=== PATIENT | female | born 1990 | race Caucasian/White ===

== ENCOUNTER 2021-06-02 23:57 | Emergency (ER) | payer MEDICAID ==
[2021-06-03 00:15] VITALS: BP 118/76
== END 2021-06-03 00:57 | disposition left against medical advice (07) ==
LOC: ED 23:57
DX: Z53.21 Procedure and treatment not carried out due to patient leaving prior to being seen by health care provider (principal)

== ENCOUNTER 2024-03-20 18:02 | Outpatient (CLI) | payer MEDICAID | END 2024-03-20 23:59 | disposition critical access hospital (66) | LOC: EMS 18:02 | DX: K59.00 Constipation, unspecified (principal); R14.0 Abdominal distension (gaseous); R10.31 Right lower quadrant pain; R10.32 Left lower quadrant pain; R10.813 Right lower quadrant abdominal tenderness; R10.814 Left lower quadrant abdominal tenderness; R19.34 Left lower quadrant abdominal rigidity | CPT/HCPCS: A0425; A0429; A0999 ==

== ENCOUNTER 2024-03-20 18:23 | Emergency (ER) | payer MEDICAID ==
--- NOTE | 2024-03-20 18:46 | ED Physician Documentation ---
PD HPI ABD PAIN - Stated complaint Stated Complaint: ABD PX - Chief complaint Chief Complaint: Abd Pain - History obtained from History obtained from: Patient - Additional information Additional information: 33-year-old female with a past medical history of polysubstance abuse currently staying [facility] presents with abdominal pain. She reportedly has not had a bowel movement in 16 days and has had increasing abdominal pain more so in the left upper quadrant for last several days. She last ate around 4 AM but states she did vomit. She has not taken any p.o. since then. She feels a bloated and d istended. She has not had a fever, no diarrhea, Denies any urinary symptoms. She denies any chance of . She has a history of constipation requiring multiple disimpactions under sedation at [facility] in the past. She states she has tried multiple different medications recently including 4 tablets of bisacodyl today, MiraLAX, several enemas and has been on Linzess in the past without relief.No history of bowel obstruction or bowel surgeries. Review of Systems Constitutional: reports: Reviewed and negative Eyes: reports: Reviewed and negative Ears: reports: Reviewed and negative Nose: reports: Reviewed and negative Throat: reports: Reviewed and negative Cardiac: reports: Reviewed and negative Respiratory: reports: Reviewed and negative GI: reports: Abdominal Pain, Abdominal Swelling, Nausea, Vomiting, Constipation : reports: Reviewed and negative Skin: reports: Reviewed and negative Musculoskeletal: reports: Reviewed and negative Neurologic: reports: Reviewed and negative Psychiatric: reports: Reviewed and negative PD PAST MEDICAL HISTORY - Past Medical History Past Medical History: Yes GI: Chronic constipation (IBS-C, opioid induced constipation), Other Psych: Depression, Anxiety, Other (Polysubstance abuse) - Past Surgical History Past Surgical History: Yes General: Other - Present Medications Home Medications: Ambulatory Orders Medication Instructions Recorded Confirmed Buspirone HCl 40 mg PO DAILY 06/03/21 06/03/21 Citalopram [CeleXA] 40 mg PO DAILY 06/03/21 06/03/21 Bisacodyl Supp [Dulcolax Supp] 10 mg IA DAILY #30 supp 03/20/24 Lactulose 20 gm PO BID #473 ml 03/20/24 - Allergies Allergies/Adverse Reactions: Allergies Allergy/AdvReac Type Severity Reaction Status Date / Time codeine Allergy Anaphylaxis Verified 03/20/24 18:30 doxycycline Allergy Hives Verified 03/20/24 18:30 - Social History Does the pt smoke?: Yes Smoking Status: Current every day smoker Does the pt drink ETOH?: No Does the pt have substance abuse?: Yes Substance Use and Type: Meth, Heroin, Other - Immunizations Immunizations are current?: Yes - POLST Patient has POLST: No PD ED PE NORMAL - Vitals Vital signs reviewed: Yes - General General: Alert and oriented X 3, Other (Patient appears chronically ill, nonto xic.) - HEENT HEENT: Atraumatic, Moist mucous membranes - Neck Neck: Supple, no meningeal sign, No adenopathy - Cardiac Cardiac: RRR, No murmur - Respiratory Respiratory: No respiratory distress, Clear bilaterally - Abdomen Abdomen: Normal bowel sounds, Soft, Other (Generalized tenderness to light touch, focal tenderness in the left upper quadrant. No rigidity abdomen does not appear distended to me, bowel tones are active.) - Derm Derm: Normal color, Warm and dry - Extremities Extremities: No deformity, No tenderness to palpate, Normal ROM s pain, No edema, No calf tenderness / cord Results - Vitals Vitals: Vital Signs - 24 hr 03/20/24 03/20/24 03/20/24 18:30 19:05 19:30 Temperature 37.0 C Heart Rate 70 68 76 Respiratory 15 18 18 Rate Blood Pressure 107/66 107/66 105/65 O2 Saturation 98 96 95 If not protocol : Oxygen Flow, liters/minute 03/20/24 03/20/24 03/20/24 20:00 20:30 20:53 Temperature Heart Rate 85 83 90 Respiratory 18 18 18 Rate Blood Pressure 113/69 101/65 101/65 O2 Saturation 97 97 100 If not protocol 2 : Oxygen Flow, liters/minute 03/20/24 03/20/24 03/20/24 20:55 20:59 21:00 Temperature Heart Rate 78 97 101 H Respiratory 18 14 22 Rate Blood Pressure 103/63 133/86 H 133/96 H O2 Saturation 98 98 98 If not protocol 2 2 2 : Oxygen Flow, liters/minute 03/20/24 03/20/24 03/20/24 21:04 21:09 21:14 Temperature Heart Rate 102 H 88 107 H Respiratory 20 14 20 Rate Blood Pressure 130/80 121/74 133/80 H O2 Saturation 98 99 98 If not protocol 2 2 2 : Oxygen Flow, liters/minute 03/20/24 03/20/24 03/20/24 21:19 21:24 21:30 Temperature Heart Rate 99 83 79 Respiratory 14 20 22 Rate Blood Pressure 129/82 H 121/78 121/78 O2 Saturation 98 99 97 If not protocol 2 2 : Oxygen Flow, liters/minute 03/20/24 03/20/24 03/20/24 21:31 21:39 21:52 Temperature Heart Rate 81 78 77 Respiratory 16 20 18 Rate Blood Pressure 118/75 113/73 O2 Saturation 96 96 If not protocol : Oxygen Flow, liters/minute 03/20/24 03/20/24 22:00 22:06 Temperature Heart Rate 80 86 Respiratory 16 18 Rate Blood Pressure 97/62 105/72 O2 Saturation 95 96 If not protocol : Oxygen Flow, liters/minute Oxygen O2 Source Room air - Labs Labs: Laboratory Tests 03/20/24 03/20/24 03/20/24 18:48 18:48 18:48 WBC 5.8 RBC 3.96 L Hgb 12.3 Hct 38.9 MCV 98.2 MCH 31.1 H MCHC 31.6 L RDW 12.5 Plt Count 130 MPV 10.8 Neut # (Auto) 3.8 Lymph # (Auto) 1.6 [place] # (Auto) 0.4 Eos # (Auto) 0.0 Baso # (Auto) 0.0 Absolute Nucleated RBC 0.00 Nucleated RBC % 0.0 Sodium 140 Potassium 4.4 Chloride 108 Carbon Dioxide 29 Anion Gap 3.0 L BUN 14 Creatinine 0.9 Estimated GFR (MDRD) 73 L Glucose 83 Lactic Acid 1.0 Calcium 9.2 Total Bilirubin 0.8 AST 18 ALT 19 Alkaline Phosphatase 51 Total Protein 6.9 Albumin 4.3 Globulin 2.6 Albumin/Globulin Ratio 1.7 Lipase 33 Urine Color Urine Clarity Urine pH Ur Specific [place] Urine Protein Urine Glucose (UA) Urine Ketones Urine Occult Blood Urine Nitrite Urine Bilirubin Urine Urobilinogen Ur Leukocyte Esterase Urine RBC Urine WBC Ur Squamous Epith Cells Urine Bacteria Ur Microscopic Review Urine Culture Comments Urine Opiates Screen Ur Buprenorphine Scrn Ur Oxycodone Screen Urine Methadone Screen Ur Barbiturates Screen Ur Tricyclics Screen Ur Phencyclidine Scrn Ur Amphetamine Screen U Methamphetamines Scrn U Benzodiazepines Scrn Urine Cocaine Screen U Cannabinoids Screen Ur Drug Screen Comment 03/20/24 20:45 WBC RBC Hgb Hct MCV MCH MCHC RDW Plt Count MPV Neut # (Auto) Lymph # (Auto) [place] # (Auto) Eos # (Auto) Baso # (Auto) Absolute Nucleated RBC Nucleated RBC % Sodium Potassium Chloride Carbon Dioxide Anion Gap BUN Creatinine Estimated GFR (MDRD) Glucose Lactic Acid Calcium Total Bilirubin AST ALT Alkaline Phosphatase Total Protein Albumin Globulin Albumin/Globulin Ratio Lipase Urine Color YELLOW Urine Clarity SL. CLOUDY Urine pH 7.0 Ur Specific [place] 1.010 Urine Protein NEGATIVE Urine Glucose (UA) NEGATIVE Urine Ketones NEGATIVE Urine Occult Blood NEGATIVE Urine Nitrite NEGATIVE Urine Bilirubin NEGATIVE Urine Urobilinogen 0.2 (NORMAL) Ur Leukocyte Esterase TRACE H Urine RBC None Seen Urine WBC 4-5 Ur Squamous Epith Cells NONE SEEN Urine Bacteria Many H Ur Microscopic Review INDICATED Urine Culture Comments INDICATED Urine Opiates Screen POSITIVE H Ur Buprenorphine Scrn NEGATIVE Ur Oxycodone Screen NEGATIVE Urine Methadone Screen NEGATIVE Ur Barbiturates Screen NEGATIVE Ur Tricyclics Screen NEGATIVE Ur Phencyclidine Scrn NEGATIVE Ur Amphetamine Screen POSITIVE H U Methamphetamines Scrn POSITIVE H U Benzodiazepines Scrn POSITIVE H Urine Cocaine Screen NEGATIVE U Cannabinoids Screen NEGATIVE Ur Drug Screen Comment CUTOFF CONC BELOW: - Rads (name of study) No standard instances Relevant Findings:: Final report received Procedures - General procedure General procedure: Procedural sedation for digital disimpaction Written consent obtained NPO since 4am Mallampati class 1 ASA II (polysubstance abuse) RT and RN at bedside; Dr. Worthington available Moderate sedation with Ketamine Sedation started at 2052 after a timeout. 60mg of IV ketamine administered. After anesthesia achieved, digital disimpaction was performed. There was immediate hard/mio like stool in the rectum and multiple passes were required to remove pieces of mio hard stool. I utilized a mineral oil enema to assist. After approximately 10 minutes the patient started to wake up. Additional disimpaction was necessary therefore an additional 60mg of IV ketamine was administered. After sedation achieved, multiple additional passes of digital disimpaction again undertaken. Multiple small amounts of mio consistecy stool removed. Stool did seem to start to move down into the rectal vault. After patient started to awaken again, we terminated the procedure. Sedation end time: 2123 Total time of procedural sedation:31 Total ketamine administered: 120mg Post procedure assessment: pt is awake and alert, conversant, maintaining airway on room air. PD Medical Decision Making - ED course Complexity details: reviewed results, re-evaluated patient, considered differential, d/w patient ED course: This is a 33-year-old female who has a history of polysubstance abuse and opioid induced constipation who presents with constipation. She has required multiple different digital disimpactions under sedation at [facility]. Here, the patient appears nontoxic, afebrile, she has a soft abdomen with active bowel tones but severe obstipation on her CT scan. Her labs are reassuring including CBC and CMP, lactic acid is normal, urine drug screen is positive for opiates, methamphetamines and benzos. Certainly the opiates are contributing to her constipation. There is no sign of obstruction but she has very severe obstipation. We straight cath the patient for about a liter of urine as she had an extremely full bladder on exam likely somewhat obstructed by her constipation. Then after discussion with the patient we proceeded with digital disimpaction under ketamine sedation. I was able to remove a large amount of claylike stool however she still does have quite a bit of stool in the rectal vault. She received magnesium citrate here as well as an Mineral oil enema during disimpaction and we will see if she is able to now pass some stool on her own. If so, she should be able to discharge back to [facility]. She will need ongoing aggressive bowel regimen and will need to abstain completely from opiates which are the cause of her constipation. I have prescribed lactulose twice daily as well as bisacodyl rectal suppositories. I anticipate the patient will likely be able to discharge back to [facility] but am signing out to Dr. Worthington at the conclusion of my shift until pt is able to get up and attempt to pass stool. Departure - Departure Clinical Impression: Obstipation, Polysubstance dependence including opioid type drug with complication, episodic abuse Condition: Good Instructions: ED Constipation Prescriptions: Bisacodyl Supp [Dulcolax Supp] 10 mg IA DAILY #30 supp Lactulose 20 gm PO BID #473 ml Comments: Your constipation is made much worse by the use of opiates. You will continue to have severe constipation if you continue to use opiates. The first step in r esolving your constipation is to continue to work on staying clean. Continue working with [facility] for this. Start taking Lactulose daily. Stop using the bisacodyl orally and use rectally daily. Stay well hydrated and eat a diet high in fruits/vegetables to help reduce constipation. Talk with your doctor about other options including Relistor or Movantik. These can can with opioid induced constipation. Forms: PCP List
[2024-03-20 18:55] LABS: BASOPHILS % (AUTO) 0.3 %; EOSINOPHILS % (AUTO) 0.5 %; HCT - HEMATOCRIT 38.9 % (37.0-47.0); HGB - HEMOGLOBIN 12.3 g/dL (12.0-16.0); LYMPHOCYTES # (AUTO) 1.6 10^3/uL (1.5-3.5); LYMPHOCYTES % (AUTO) 27.4 %; MEAN CORPUSCULAR HEMOGLOBIN 31.1 pg (27.0-31.0); MEAN CORPUSCULAR HGB CONC 31.6 g/dL (32.0-36.0); MEAN CORPUSCULAR VOLUME 98.2 fL (81.0-99.0); MEAN PLATELET VOLUME 10.8 fL (7.9-10.8); MONOCYTES # (AUTO) 0.4 10^3/uL (0.0-1.0); MONOCYTES % (AUTO) 6.8 %; NEUTROPHILS # (AUTO) 3.8 10^3/uL (1.5-6.6); NEUTROPHILS % (AUTO) 64.8 %; PLT - PLATELET COUNT 130 10^3/uL (130-450); RED BLOOD COUNT 3.96 10^6/uL (4.20-5.40); RED CELL DISTRIBUTION WIDTH 12.5 % (12.0-15.0); WHITE BLOOD COUNT 5.8 x10^3/uL (4.8-10.8)
[2024-03-20] MEDS ORDERED: iohexoL-300 100 ML VIAL ONE (19:00)
[2024-03-20 19:25] LABS: ALBUMIN 4.3 g/dL (3.2-5.5); ALBUMIN/GLOBULIN RATIO 1.7 (1.0-2.2); BILIRUBIN,TOTAL 0.8 mg/dL (0.2-1.0); CALCIUM 9.2 mg/dL (8.5-10.3); CREATININE 0.9 mg/dL (0.6-1.3); POTASSIUM 4.4 mmol/L (3.5-4.5); TOTAL PROTEIN 6.9 g/dL (6.4-8.9)
[2024-03-20] MEDS: iohexoL-300 100 ML VIAL IVP ONE (19:58)
--- NOTE | 2024-03-20 20:02 | CT Report ---
PROCEDURE: Abdomen/Pelvis W INDICATIONS: eval for obstruction CONTRAST: 100ml [id number] TECHNIQUE: After the administration of intravenous contrast, a CT scan of the abdomen and pelvis was performed. Images were recorded and evaluated at appropriate window settings. Reformats: coronal and sagittal. F or radiation dose reduction, the following was used: automated exposure control, adjustment of mA and /or kV according to patient size. COMPARISON: None. FINDINGS: Image quality: Diagnostic. Lower chest: Unremarkable. Liver: Subcentimeter hypoattenuating liver lesions, too small to characterize by CT. Hyperattenuating focus in segment 7 of the liver measuring 1.4 cm (series 2, image 23); this favors a vascular shunt in the absence of risk factors. Gallbladder: No radiopaque stones or wall thickening. Biliary tree: No intrahepatic or extrahepatic dilation, accounting for age. Spleen: No splenomegaly. Pancreas: No pancreatic ductal dilation. Adrenals: No adrenal nodule. Kidneys and ureters: No hydronephrosis. No renal cystic lesion which requires follow up. No solid mas s. Stomach, bowel and peritoneum: Severe colonic and rectal stool lobe, with gaseous and fecal distentio n of the entire large bowel. Lymph nodes: No central or retroperitoneal adenopathy. Vessels: No infrarenal aortic aneurysm. Patent portal vein. PELVIS Reproductive organs: IUD within the endometrium. Bladder: Urinary bladder is significantly distended. Pelvic lymph nodes: No pelvic adenopathy by size criteria. Bones: No aggressive osseous abnormality. Other: No significant ventral or inguinal hernia. IMPRESSION: Obstipation caused by a massive colonic and rectal stool none. Significant distention of the urinary bladder, which may indicate urinary retention. Reviewed by: Zaki Okeefe MD on 03/20/2024 8:00 PM PDT Approved by: Zaki Okeefe MD on 03/20/2024 8:00 PM PDT Station ID: [id number]
[2024-03-20] MEDS: BISACODYL 10 MG SUPP PR STA (20:26)
[2024-03-20 20:52] LABS: BILIRUBIN,URINE NEGATIVE (NEGATIVE); GLUCOSE, URINE (UA) NEGATIVE (NEGATIVE); KETONES,URINE (UA) NEGATIVE (NEGATIVE); NITRITE,URINE NEGATIVE (NEGATIVE); OCCULT BLOOD,URINE NEGATIVE (NEGATIVE); PROTEIN,URINE NEGATIVE (NEGATIVE); UROBILINOGEN,URINE 0.2 (NORMAL) E.U./dL (NORMAL)
[2024-03-20] MEDS: KETAMINE 500 MG/10 ML VIAL IVP STA ×2 (20:55→21:09)
[2024-03-20] MEDS: MAGNESIUM CITRATE 296 ML BOTTLE PO STA (21:00)
[2024-03-20 21:02] LABS: CLARITY,URINE SL. CLOUDY (CLEAR)
[2024-03-20 21:03] LABS: BACTERIA,URINE Many /HPF (None Seen); LEUKOCYTE ESTERASE, URINE TRACE (NEGATIVE); RBC,URINE None Seen /HPF (0-5); SQUAMOUS EPITHELIAL CELL,UR NONE SEEN (<= Few)
[2024-03-20 21:05] LABS: AMPHETAMINE SCREEN,URINE POSITIVE (NEGATIVE); BARBITURATE SCREEN,UR NEGATIVE (NEGATIVE); BENZODIAZEPINES SCREEN, URINE POSITIVE (NEGATIVE); BUPRENORPHINE SCREEN, URINE NEGATIVE (NEGATIVE); COCAINE SCREEN URINE NEGATIVE (NEGATIVE); METHADONE SCREEN, URINE NEGATIVE (NEGATIVE); METHAMPHETAMINES SCREEN, URINE POSITIVE (NEGATIVE); OPIATE SCREEN, URINE POSITIVE (NEGATIVE); OXYCODONE SCREEN, URINE NEGATIVE (NEGATIVE); THC CANNABINOID SCREEN, URINE NEGATIVE (NEGATIVE); TRICYCLIC ANTIDEPRESSANT,URINE NEGATIVE (NEGATIVE)
[2024-03-20] MEDS: MINERAL OIL ENEMA 133 ML BOTTLE RC STA (21:07)
[2024-03-20] MEDS: ACETAMINOPHEN 325 MG TABLET PO STA (23:34)
[2024-03-20] MEDS: KETOROLAC 15 MG/ML VIAL IVP STA (23:34)
[2024-03-20] MEDS: LORazepam 2 MG/ML VIAL IVP STA (23:34)
--- NOTE | 2024-03-20 23:36 | ED Physician Documentation ---
ED Addendum - Addendum Addendum: 03/20/24 23:34 The patient was having some increased cramping. She did have some soft mild like stool out here. Her cramps are decreasing some. However she is still having some moderate cramps at times. She is given Toradol 15 mg IV. She is having some anxiety and likely early withdrawal type symptoms. She did not want to start Suboxone just yet timing eaton from her last opioid use. She has been using meth as well. We did give a dose of lorazepam here to help with anxiety a nd withdrawal. It too is able to take the patient back and she will be getting a taxi ride there. Discharged in improving condition.
[2024-03-21] MEDS: BUPRENORPHINE/NALOXONE 8-2 MG TAB SL STA (02:44)
[2024-03-21] MEDS: LORazepam 2 MG/ML VIAL IVP STA (02:44)
[2024-03-21 06:29] VITALS: O2SAT 95
[2024-03-21 06:50] VITALS: BP 113/78
== END 2024-03-21 06:51 | disposition home or self-care (01) ==
LOC: EDUNIT# → ED 18:23
DX: K59.00 Constipation, unspecified (principal); F11.20 Opioid dependence, uncomplicated; F19.20 Other psychoactive substance dependence, uncomplicated; F17.200 Nicotine dependence, unspecified, uncomplicated
CPT/HCPCS: 36415; 74177; 80053; 80306; 81001; 83605; 83690; 85025; 87077; 87086; 87181; 96374; 96375; 99152; 99153; 99284; A9270; J2060; Q9967; 81003